=== PATIENT | male | born 1975 ===

== ENCOUNTER 2023-11-02 05:39 | Day surgery (SDC) | payer BC ==
[~2023-11-02 05:39] MED LIST: Dextrose 5%-0.45% NaCl 1,000 ML IV SCH
[2023-11-02] MEDS ORDERED: Midazolam 1 MG/ML 2 ML SDV ONE (05:59)
[2023-11-02] MEDS ORDERED: fentaNYL 100 MCG/2 ML SDV IV ONE ×4 (06:00→06:56)
[2023-11-02] MEDS ORDERED: Midazolam 1 MG/ML 2 ML SDV IV ONE ×7 (06:00→06:55)
[2023-11-02] MEDS ORDERED: fentaNYL 100 MCG/2 ML SDV ONE (06:00)
== END 2023-11-02 08:55 | disposition home or self-care (01) ==
LOC: DL.ENDO 05:39
PROVIDERS: ATTEND Internal Medicine Gastroenterology
DX: Z12.11 Encounter for screening for malignant neoplasm of colon (principal); D12.4 Benign neoplasm of descending colon; K57.30 Diverticulosis of large intestine without perforation or abscess without bleeding; F32.A Depression, unspecified; F41.1 Generalized anxiety disorder; E66.09 Other obesity due to excess calories; Z68.37 Body mass index [BMI] 37.0-37.9, adult
CPT/HCPCS: J2250; J3010; J7042

== ENCOUNTER 2024-05-08 20:43 | Emergency (ER) | payer BC ==
[2024-05-08] MEDS: Diphtheria,Pertussis(Acell),Tetanus Vaccine 0.5 ML Syringe IM ONE (21:49)
[2024-05-08] MEDS: Mupirocin Oint 22 GM Tube TOP ONE (21:50)
[2024-05-08] MEDS: Acetaminophen 500 MG Tab PO ONE (22:07)
== END 2024-05-08 22:11 | disposition home or self-care (01) ==
LOC: DL.ED 20:43
DX: S80.812A Abrasion, left lower leg, initial encounter (principal); S99.912A Unspecified injury of left ankle, initial encounter; E66.9 Obesity, unspecified; Z23 Encounter for immunization; Z79.899 Other long term (current) drug therapy; Z88.8 Allergy status to other drugs, medicaments and biological substances; Z68.31 Body mass index [BMI] 31.0-31.9, adult; W20.8XXA Other cause of strike by thrown, projected or falling object, initial encounter
CPT/HCPCS: 73610-LT; 90471; 90715; 99283; 99283-25; A9270-GY